=== PATIENT | female | born 1995 | race African-American/Black ===

== ENCOUNTER 2019-03-07 13:38 | Emergency (ER) | payer OTHER ==
[~2019-03-07] VITALS: Ht 170.2 cm; Wt 57.6 kg
[2019-03-07 13:48] VITALS: Ht 170.2 cm; Wt 57.6 kg
[2019-03-07 14:26] LABS: CALCIUM 8.8 mg/dL (8.5-10.1); CARBON DIOXIDE 24.9 mmol/L (21-32); CHLORIDE SERUM 103 mmol/L (98-107); CREATININE SERUM 0.6 mg/dL (0.6-1.0); GFR1 > 60 mL/min; GLUCOSE SERUM 86 mg/dL (74-106); POTASSIUM SERUM 3.5 mmol/L (3.5-5.1); SODIUM SERUM 137 mmol/L (136-145)
[2019-03-07 14:27] LABS: UA SPECIFIC GRAVITY 1.015 (1.005-1.035); microscopic required? YES; urine erythrocyte TRACE (NEGATIVE)
[2019-03-07 14:30] LABS: ALKALINE PHOSPHATASE 55 U/L (46-116); ALT/SGPT 14 U/L (14-59); AST/SGOT 15 U/L (15-37); BILIRUBIN TOTAL 0.5 mg/dL (0.20-1.00); TOTAL PROTEIN, SERUM 7.4 g/dL (6.4-8.2)
[2019-03-07 14:35] LABS: ALBUMIN 3.1 g/dL (3.4-5.0); BASOPHIL % 0.5 % (0-2); PLATELET COUNT 261 x10^3mcL (130-400)
[2019-03-07 14:43] LABS: RED CELL DISTRIBUTION WIDTH 16.4 % (11.5-14.5)
[2019-03-07 16:22] VITALS: BP 122/63
== END 2019-03-07 16:22 | disposition home or self-care (01) ==
LOC: ED 13:38
PROVIDERS: Emergency Medicine
DX: O21.0 Mild hyperemesis gravidarum (principal); Z3A.10 10 weeks gestation of pregnancy
CPT/HCPCS: J2405; J7030

== ENCOUNTER 2019-03-25 15:27 | Emergency (ER) | payer OTHER ==
[~2019-03-25] VITALS: Ht 170.2 cm; Wt 58.1 kg
[2019-03-25 15:41] VITALS: BP 134/94; Ht 170.2 cm; Wt 58.1 kg
== END 2019-03-25 17:18 | disposition left against medical advice (07) ==
LOC: ED 15:27
DX: Z53.21 Procedure and treatment not carried out due to patient leaving prior to being seen by health care provider (principal)